=== PATIENT | female | born 1970 | race Caucasian/White ===

== ENCOUNTER 2025-01-20 11:35 | Outpatient (REF) | payer BC, SELFPAY ==
[2025-01-20 15:29] LABS: C. Difficile PCR NEGATIVE
== END 2025-01-20 11:36 | disposition home or self-care (01) ==
LOC: LAB 11:35
PROVIDERS: PCP Nurse Practitioner Family; Visit Provider Nurse Practitioner Family
DX: K52.9 Noninfective gastroenteritis and colitis, unspecified (principal)
CPT/HCPCS: 87045; 87046; 87427; 87493